=== PATIENT | male | born 1960 | race Caucasian/White ===

== ENCOUNTER 2019-02-12 01:03 | Emergency (ER) | payer MEDICAID ==
[~2019-02-12] VITALS: Ht 170.2 cm; Wt 68.2 kg
[2019-02-12 01:07] VITALS: Ht 170.2 cm; Wt 68.2 kg
[2019-02-12] MEDS ORDERED: HYDROCODON-ACE1 EA10 PO (01:45)
[2019-02-12 02:00] VITALS: BP 128/88
== END 2019-02-12 01:58 | disposition home or self-care (01) ==
LOC: D.ER 01:03
DX: S62.302A Unspecified fracture of third metacarpal bone, right hand, initial encounter for closed fracture (principal); W20.8XXA Other cause of strike by thrown, projected or falling object, initial encounter; Y93.89 Activity, other specified; Y92.89 Other specified places as the place of occurrence of the external cause

== ENCOUNTER 2019-07-04 22:29 | Emergency (ER) | payer MEDICAID ==
[~2019-07-04] VITALS: Ht 170.2 cm; Wt 70.5 kg
[~2019-07-04 22:29] MED LIST: HYDROCODON-ACE1 EA10 PO
[2019-07-04 22:49] VITALS: Ht 170.2 cm; Wt 70.5 kg
[2019-07-04] MEDS ORDERED: ULTRAM50 MG PO (23:57)
[2019-07-05 00:04] VITALS: BP 125/78
== END 2019-07-05 00:04 | disposition home or self-care (01) ==
LOC: D.ER 22:29
DX: S93.402A Sprain of unspecified ligament of left ankle, initial encounter (principal); X58.XXXA Exposure to other specified factors, initial encounter